=== PATIENT | male | born 1970 | race African-American/Black ===

== ENCOUNTER 2017-10-09 08:33 | Day surgery (SDC) | payer OTHER ==
[~2017-10-09 08:33] MED LIST: Buffered Lidocaine 0.9% SYRIN* 5 ML/SYR SYRINGE INTRADERM ONE; Dexamethasone IV* 4 MG/ML 1 ML (4 MG) IV SLOW PU ONE; Famotidine TAB* 20 MG PO ONE
[2017-10-09] MEDS ORDERED: ceFAZolin 2 GM PREMIX (*) 2 GM/50 ML BAG IVPB ONE (09:06)
[2017-10-09] MEDS ORDERED: Famotidine TAB* 20 MG ONE (09:06)
[2017-10-09] MEDS ORDERED: Dexamethasone IV* 4 MG/ML 1 ML (4 MG) ONE (09:06)
[2017-10-09] MEDS ORDERED: Levalbuterol 0.63MG/3ML NEB* UNIT OF USE INH ONE ×2 (09:13→09:20)
[2017-10-09] MEDS ORDERED: Midazolam* 1 MG/ML 5 ML VIAL (5 MG) ONE (09:29)
[2017-10-09] MEDS ORDERED: Atracurium* 10 MG/ML 10 ML VIAL ONE (09:29)
[2017-10-09] MEDS ORDERED: fentaNYL* 50 MCG/ML 2 ML VIAL (100 MCG VIAL) ONE ×2 (09:29→10:57)
[2017-10-09] MEDS ORDERED: ROPIVACAINE 5 MG/ML 30 ML BTL (0.5%) ONE (10:19)
[2017-10-09] MEDS ORDERED: EPINEPHRINE 1 MG/ML 1 ML VIAL ONE (10:20)
[2017-10-09] MEDS ORDERED: Bupivacaine 0.25% SDV* 30 ML ONE (10:20)
[2017-10-09] MEDS ORDERED: Propofol* 10 MG/ML 20 ML BTL IV PUSH ONE (11:09)
[2017-10-09] MEDS ORDERED: Ondansetron INJ* 2 MG/ML VIAL ONE (11:09)
[2017-10-09] MEDS ORDERED: Ketorolac INJ* 30 MG/ML 1 ML VIAL ONE (11:09)
[2017-10-09] MEDS ORDERED: Naloxone* 0.4 MG/ML 1 ML VIAL IV PRN (11:27)
[2017-10-09] MEDS ORDERED: Ondansetron INJ* 2 MG/ML VIAL IV PRN (11:27)
[2017-10-09] MEDS ORDERED: fentaNYL* 50 MCG/ML 2 ML VIAL (100 MCG VIAL) IV PRN (11:27)
[2017-10-09] MEDS ORDERED: oxyCODONE/Acetamin 5/325 MG* TAB PO PRN (11:27)
[2017-10-09] MEDS ORDERED: DiMENhydriNATE IV* 50 MG/ML VIAL IV PUSH PRN (11:27)
[2017-10-09] MEDS ORDERED: HYDROmorphone INJ* 1 MG/ML CARPUJECT SYRINGE IV PRN (11:27)
[2017-10-09 16:39] VITALS: BP 136/110
--- NOTE | 2017-10-11 02:13 | OP ---
OPERATIVE REPORT: DATE OF OPERATION: 10/09/17 DATE OF : 68 SURGEON: Etienne Davis MD OBSTETRICS SCRUB NURSE: BILL Horner A physician fast food sales assistant was required for the length of the procedure for positioning, assistance with instrumentation and closure. ANESTHESIOLOGIST: Dr. Cruz Fitzgerald. ANESTHESIA: General anesthesia, regional interscalene block anesthesia. PRE-OP DIAGNOSES: 1. Right shoulder glenohumeral joint instability, anterior, recurrent. 2. Right shoulder anterior labrum tear, periosteal sleeve avulsion, chronic bony Bankart bony deficiency. 3. Right shoulder mild posterior humeral head Hill-Sachs impaction fracture. 4. Right shoulder rotator cuff tendon tear, supraspinatus, full thickness and almost full width, mild retraction. 5. Likely right shoulder biceps tendinosis. POST-OP DIAGNOSES: 1. Right shoulder glenohumeral joint instability, anterior , recurrent. 2. Right shoulder anterior labrum tear, periosteal sleeve avulsion, chronic bony Bankart bony deficiency. 3. Right shoulder posterior labrum tear. 4. No significant right shoulder Hill-Sachs impaction fracture, posterior humeral head. 5. Right shoulder minimal glenohumeral joint osteoarthritis. 6. Right shoulder proximal biceps tendinosis and tearing, partial thickness. 7. Right shoulder subacromial impingement. OPERATIVE PROCEDURES: 1. Right shoulder arthroscopic anterior and posterior labrum repairs, including capsule and labrum. 2. Right shoulder arthroscopic rotator cuff tendon repair, supraspinatus, double row. 3. Right shoulder arthroscopic limited debridement including release of biceps tendon, debridement of rotator interval, debridement of posterior joint synovitis and a posterior humeral head and significant release of scarred in anterior labrum. 4. Right shoulder arthroscopic subacromial decompression. This procedure likely warrants a Modifier 99 due to the complexity of the procedure, involving a large, chronic, anterior and posterior labral repair with a chronically unstable shoulder along with a rotator cuff repair. ANTIBIOTICS: Ancef 2 g IV. IV FLUIDS: See anesthesia note. SPECIMEN: None. IMPLANTS: 5 Mitek Gryphon suture anchors. Those were for labrum repair. Two Mitek Healix rotator cuff suture anchors, one anchor was triple loaded 5.5 mm, the other was a knotless 5.5 mm anchor. SKIN TO SKIN TIME: 193 minutes. ARTHROSCOPIC FLUID UTILIZED: 23 bags consisting each of 3 L. COMPLICATIONS: None. ESTIMATED BLOOD LOSS: Minimal. INDICATIONS: The patient is a 47-year-old man, right hand dominant, a prisoner from the nursing home in [place], with a history of right shoulder instability since an injury in approximately spring while playing basketball. The patient had his initial dislocation relocated in the emergency room. However, he had had many dislocations since. He described approximately 10 dislocations at one clinic visit, another clinic visit admitted to many more. The patient did not dislocate it with athletics, but it also dislocated with sleep. The patient had responded insufficiently to nonoperative management. While doing an anterior apprehension test, likely in the office, I easily dislocated the patient, a good sign that the patient was significantly unstable with his right glenohumeral joint. MRI with intraarticular contrast from 08/14/17 showed an anterior labral tear, but also a clear defect at the anterior inferior glenoid rim. The anterior labrum appeared to contain a periosteal sleeve avulsion as well. There is some degree of Hill-Sachs impaction fracture but it appeared very shallow, only 1 or 2 mm thick. There was also a full thickness supraspinatus rotator cuff tear, with only minimal retraction. MRI also indicated that there was some fluid on the biceps tendon and exam had indicated that the biceps and superior labrum could also be a source of pain. Discussed with the patient risks and potential complications of surgery including bleeding, infection, nerve or blood vessel injury, shoulder pain, stiffness, osteoarthritis, redislocation, re-tendon and labrum tear. The patient opted to go forward with surgery. DESCRIPTION OF PROCEDURE: In the preoperative holding, the patient signed a written consent. The operative extremity was marked in the preoperative holding. The patient had an interscalene regional nerve block performed by Dr. Fitzgerald. The patient was taken back to the operating room and placed supine on the operating room table. The patient was placed under general anesthesia. The patient was converted to allow a decubitus position with the right shoulder up. Axillary roll. Guillen bag was hardened. All bony prominences padded. Right shoulder was placed in longitudinal traction, 15 pounds with the shoulder in appropriate amount of forward flexion and abduction. A Rowland [employer] Nephew lateral traction post was also applied to the bed. The right shoulder was prepped with ChloraPrep and then draped. Surgical time-out was then performed. Some palpation of the shoulder appeared to indicate that the shoulder was subluxed or dislocated anteriorly. I had my fast food sales assistant to posteriorly translate the humeral head. I next placed a spinal needle into the glenohumeral joint from posterior. I infused 30 cc of normal saline. I established a posterior glenohumeral joint portal. I started my diagnostic arthroscopy. The humeral head perched anteriorly to the glenoid, dislocated anteriorly. This indicated much instability. To counter this instability, I reduced the forward flexion in the positioning of my shoulder and its longitudinal traction. Also had my physician fast food sales assistant provide post translational force on the humerus for much of the, especially while the first several labral anchors were placed. Diagnostic arthroscopy also indicated a significant amount of tearing and tendinosis at proximal biceps tendon, long head. There was no subscapularis tear. There was clearly a supraspinatus full thickness rotator cuff tendon tear. There was grade 1 and 2 articular cartilage loss about the posterior aspect of the humeral head, but there was no impaction visible. The patient had been booked for possible Remplissage and clearly there was nothing to engage in, no defect that need to be filled in with Remplissage procedure. There was much synovitis about the posterior capsule. Some of these above notes were made with first look. Some were made after I established a standard anterior glenohumeral joint portal under direct visualization and debrided synovitic tissue with an arthroscopic shaver. This clearly improved visualization within the joint and allowed me to make the above mentioned observations. I next decided to make my portals for my labral repair. I next applied the lateral retraction device from [employer] Nephew. I next placed my anterior inferior portal under direct visualization. I placed an Arthrex 7 mm plastic cannula. I then cut the biceps with a vapor device just off its origin. I used an arthroscopic shaver to smooth out the superior labrum. I next placed my anterior superior portal. I left metal cannula in place and placed my arthroscope into this anterior superior position. I next placed a new posterior portal and put a 7 mm Arthrex plastic cannula through it. I had excellent visualization of the anterior labrum and good working portals. I next debrided along the anterior labrum tear with an arthroscopic shaver as well as a liberator. This allowed me to view the anterior labrum. I saw the anterior labral tear came all the way up to approximately 2 o'clock. It appeared to go beyond the 6 o'clock position to approximately 7 o'clock. The most medialized component of the labral tear was anterior. There was a thick block of the labral and other soft tissue that had clearly anteriorized and medialized. I spent some time freeing this up. I was able to visualize the subscapularis muscle between the glenoid and labrum. I debrided the bone about the anterior glenoid with the arthroscopic shaver as well. Using the grasper, the labral tissue could be brought to the rim of the glenoid. I next placed a labral anchor at the 6 o'clock or 5:45 o'clock position. I placed a horizontal mattress stitch. These stitches, one was placed from posterior and one was placed from anterior and it grabbed nicely the inferior most capsule. My second labral anchor, I placed at approximately 4:30 o'clock or 5 o'clock. I kept both sutures in it and placed 2 horizontal mattress stitches from this second anchor. I then placed 2 additional anchors anteriorly, each with one horizontal mattress stitch in them. This nicely brought labrum to glenoid. The humeral head was clearly positioned more posteriorly after these labral repairs have been done. I then studied more posteroinferiorly and decided to place a posteroinferior anchor. I made a percutaneous poke hole posteriorly to place this final anchor, my fifth anchor, and I placed a horizontal mattress stitch into the posteroinferior labrum. Note that one of the sutures broke after approximately 2 knots have been tied. Probed my labral repair and visualized it and I liked it. I took photographs. Removed instruments and fluid from glenohumeral joint. I entered the subacromial space from posterior and anterior. I made a lateral subacromial portal under direct visualization. I debrided bursitis with an arthroscopic shaver. It should be noted that when I was in the glenohumeral joint, I debrided much inflamed tissue including that in the rotator interval and posterior synovium. While in the subacromial space, I created a posterolateral portal for improved visualization. I noted that there was a clear crescent shaped tear almost the entire width of the supraspinatus tendon, full thickness. The tendon was nicely brought down to bone. I prepared a nice bony bed for healing by using an arthroscopic bhargav to smooth out the footprint, exposed after I had used a vapor to remove any remaining soft tissue attached to that to make a footprint. I created a superolateral subacromial portal and I placed a triple loaded Mitek Healix 5.5 mm anchor in the middle of the exposed footprint. I passed 3 horizontal mattress stitches in supraspinatus using a Rowland and Nephew suture passer. Excellent bites of high quality tissue. Given the width of the tear and the patient's young age, I decided to reinforce this with a lateral row anchor. I placed a knotless Healix 5.5 mm anchor more laterally using suture from a medial row. I also used the free stitch from the anchor to place an additional stitch in the rotator cuff tendon most posteriorly , a simple stitch. Rotator cuff repair was dealt, visually and to probing. I had previously visualized the undersurface of the acromion with vapor electrocautery. There was clearly some curve to the anterior aspect of the acromion. I performed a subacromial decompression with an arthroscopic bhargav. Fluid and instruments were removed from subacromial space. The skin incisions were closed with [id number] and twelve stitches using a nylon 4-0 suture. Xeroform, 4 x 4s, ABDs, foam tape. Sling was applied. Held off on a abduction pillow, preferring that the shoulder internally rotate more rather than less. The patient was awakened and transferred to the PACU. DISPOSITION: The patient will be discharged to nursing home when medically stable. The patient will follow up with me in clinic in 10 to 14 days postoperatively. He was to receive Percocet as needed for pain control. While I typically start both labrum and rotator cuff repair patients on physical therapy immediately postoperatively, given the patient's severe instability preoperatively I think I will let the shoulder stiffen up a little bit. I will hold off on physical therapy until I first see the patient in clinic. Also, the quality of physical therapy for prisoners is not as reliable in my experience. I will see the patient in 10 to 14 days postoperatively and at that point start him on physical therapy. He will be in a sling for 6 weeks postop. [id number]/[facility] #: [id number] [facility]
== END 2017-10-09 16:55 | disposition home or self-care (01) ==
LOC: OR 08:33
PROVIDERS: ATTEND Orthopaedic Surgery
DX: M25.311 Other instability, right shoulder (principal); M24.811 Other specific joint derangements of right shoulder, not elsewhere classified; M75.41 Impingement syndrome of right shoulder; M19.011 Primary osteoarthritis, right shoulder; M75.21 Bicipital tendinitis, right shoulder; Z72.0 Tobacco use
CPT/HCPCS: A9270-GY; J0690; J1100; J1885; J2250; J2405; J2704; J2795; J3010